=== PATIENT | male | born 1935 | race Caucasian/White ===

== ENCOUNTER 2023-05-05 17:46 | HOS | payer OTHER, MEDICARE, SELFPAY ==
--- NOTE | 2023-05-05 15:47 | HP_ITS ---
This report was moved to the correct visit on 05/07/2023. Original report was signed by Sergio Kaur MD on 05/05/23 1109. H&P: HPI History of Present Illness Date/Time: 05/05/23 15:43 Chief Complaint: Uncontolled Dyspnea Narrative: This unfortunate 88-year-old gentleman had a fall about 2 weeks prior to this admission and was found to have a subdural hematoma. At that time he he in family opted for non operative treatment. He was sent to a assisted facility for rehabilitation. Today he was noted to have altered mental status. He was brought the emergency department by EMS were he was found to have progression of his subdural bleed with herniation of the brain. He was tachypneic and responsive only to sternal rub. Son and granddaughter were present at bedside and opted for comfort care with inpatient hospice service. Review of Systems Review of Systems: ROS unobtainable: Yes unobtainable due to medical condition PMFSH Past Medical History Medical History (Updated 05/05/23 @ 15:44 by Sergio Kaur MD) Atrial fibrillation Osteoporosis Seizure disorder Subdural hemorrhage Surgical History Surgical History (Updated 05/05/23 @ 13:04 by Mario Carbajal MD) Surgical history unknown Meds Home Medications and Allergies Allergies Allergy/AdvReac Type Severity Reaction Status Date / Time ibuprofen AdvReac Rash Verified 05/05/23 11:44 lisinopril AdvReac Cough Verified 05/05/23 11:46 niacin AdvReac Rash Verified 05/05/23 11:47 simvastatin AdvReac Muscle Pain Verified 05/05/23 11:48 Vital Signs Vital Signs - 24 hr 05/05/23 11:32 05/05/23 12:15 Temperature 97.1 F L Pulse Rate 120 H 161 H Respiratory Rate 38 H 37 H Blood Pressure 111/75 118/81 Pulse Oximetry 96 97 Oxygen Delivery Nasal Cannula Oxygen Flow Rate 3 Exam Narrative: Ali gentleman lying in his hospital bed with nasal cannula oxygen in place he is tachypneic and appears to be grimacing but otherwise there are no signs of acute distress neck without JVD chest coarse breath sounds with coarse crackles throughout heart irregularly irregular with no audible murmur and tachycardia abdomen hypoactive bowel sounds soft no palpable mass extremities no edema musculoskeletal without gross deformity to visual inspection neurologic cranial nerves symmetric to visual inspection H&P: Results Labs Labs: Short CBC 05/05/23 Range/Units 12:16 WBC 14.7 H (4.5-10.0) K/mm3 Hgb 11.4 L (14.0-18.0) g/dL Hct 35.1 L (42.0-52.0) % Plt Count 308 (150-375) k/mm3 BMP 05/05/23 12:16 Sodium 137 Potassium 4.1 Chloride 100 Carbon Dioxide 32 H BUN 22 H Creatinine 0.80 Glucose 118 H Calcium 8.2 L Liver Function 05/05/23 Range/Units 12:16 Total Bilirubin 1.4 H (0.2-1.3) mg/dL AST 41 (17-59) U/L ALT 30 (6-50) U/L Alkaline Phosphatase 82 (38-126) U/L Albumin 3.0 L (3.5-5.1) g/dL Assessment and Plan Assessment and plan (1) Palliative care encounter: Code(s): Z51.5 - Encounter for palliative care Status: Acute Assessment and Plan: * Meets inpatient hospice criteria due to requiring continuous IV morphine for comfort * Remainder of palliative regimen as ordered * 05/05/2023 discussed care with son and granddaug
--- NOTE | 2023-05-05 18:37 | PC.NURSE ---
Pt passed before full admission and assessment could be completed.
--- NOTE | 2023-05-07 10:50 | PM.DDS ---
Discharge Summary Date and Time Date of : 05/05/23 Time of : 18:27 Provider Pronounced By: Guerline Hart RN Probable Cause of Probable Cause of : Subdural hematoma Summary Hospital Course: Admitted to inpatient hospice service due to uncontrolled dyspnea and discomfort. Medication was titrated to comfort. Mr. Dunn peacefully on 05/05/2023. Additional Data Confirmation of as documented by pronouncing clinician: Pupillary Reflex, Palpable Pulses, Response to Stimuli, Heart Tones and Breath Sounds Name of Provider Notified: Dr. Kaur Time Provider Notified: 18:40 Provider Requests Autopsy: No [employer] Notified: Yes Date [facility] Notified of : 05/05/23 Time [facility] Notified of : 18:32
== END 2023-05-05 18:27 | disposition expired | DRG 951 ==
PROVIDERS: Admitting Provider Internal Medicine; Visit Provider Internal Medicine
DX: Z51.5 Encounter for palliative care (principal); S06.5XAA Traumatic subdural hemorrhage with loss of consciousness status unknown, initial encounter; S06.A1XA Traumatic brain compression with herniation, initial encounter; W19.XXXD Unspecified fall, subsequent encounter; I48.91 Unspecified atrial fibrillation; M81.0 Age-related osteoporosis without current pathological fracture; G40.909 Epilepsy, unspecified, not intractable, without status epilepticus
CPT/HCPCS: A9270